=== PATIENT | female | born 1960 | race African-American/Black ===

== ENCOUNTER 2018-05-24 19:07 | Emergency (ER) | payer OTHER ==
[~2018-05-24] VITALS: Ht 167.6 cm; Wt 65.8 kg
[~2018-05-24 19:07] MED LIST: ASPIRIN325 MG ORAL; BENAZEPRIL HCL10 MG ORAL; HYDROCHLOROTH12.5 M2 ORAL; METFORMIN HCL500 M1 ORAL
[2018-05-24 19:10] VITALS: BP 126/90
[2018-05-24 21:04] VITALS: BP 122/86
[2018-05-24 21:48] LABS: BASOPHILS % (AUTO) 1.4 % (0.0-2.0); EOSINOPHILS % (AUTO) 0.7 % (0.0-3.0); HEMATOCRIT 34.1 % (37.0-47.0); HEMOGLOBIN 12.1 G/DL (12.0-16.0); LYMPHOCYTES % (AUTO) 25.3 % (20.0-45.0); MEAN CORPUSCULAR VOLUME 87 FL (80-99); MONOCYTES % (AUTO) 7.7 % (1.0-10.0); PLATELET COUNT 300 K/UL (150-450); RED BLOOD COUNT 3.91 M/UL (4.20-5.40); RED CELL DISTRIBUTION WIDTH 10.4 % (11.6-14.8); WHITE BLOOD COUNT 10.3 K/UL (4.8-10.8)
[2018-05-24 21:49] LABS: APPEARANCE,URINE CLEAR; BILIRUBIN, URINE NEGATIVE (NEGATIVE); COLOR,URINE PALE YELLOW; GLUCOSE, URINE (UA) 4+ (NEGATIVE); KETONES,URINE NEGATIVE (NEGATIVE); LEUKOCYTE ESTERASE ,URINE 1+ (NEGATIVE); NITRITE,URINE NEGATIVE (NEGATIVE); PH,URINE 5 (4.5-8.0); PROTEIN,URINE 2+ (NEGATIVE); UROBILINOGEN,URINE NORMAL MG/DL (0.0-1.0)
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
[2018-05-24 22:05] LABS: ANION GAP 8 mmol/L (5-15); BLOOD UREA NITROGEN 9 mg/dL (7-18); CALCIUM 9.8 MG/DL (8.5-10.1); CARBON DIOXIDE 28 MMOL/L (21-32); CHLORIDE 100 MMOL/L (98-107); CREATININE 0.7 MG/DL (0.55-1.30); POTASSIUM 3.7 MMOL/L (3.5-5.1); SODIUM 136 MMOL/L (136-145)
[2018-05-24 22:09] LABS: ALANINE AMINOTRANSFERASE 39 U/L (12-78); ALBUMIN 3.2 G/DL (3.4-5.0); ALBUMIN/GLOBULIN RATIO 0.6 (1.0-2.7); ALKALINE PHOSPHATASE 116 U/L (46-116); ASPARTATE AMINO TRANSFERASE 30 U/L (15-37); BILIRUBIN,TOTAL 0.8 MG/DL (0.2-1.0)
[2018-05-24 23:30] VITALS: BP 122/86
[2018-05-25 03:08] VITALS: BP 124/78
[2018-05-25 06:05] VITALS: BP 126/78
[2018-05-25 10:00] VITALS: BP 179/74
[2018-05-25] MEDS ORDERED: Acetaminophen 500mg (ES) tab ORAL ONE (10:48)
[2018-05-25 14:00] VITALS: BP 176/73
[2018-05-25 15:00] VITALS: BP 176/73
--- NOTE | 2018-05-26 13:34 | Consultation ---
History of Present Illness General Date patient seen: May 25, 2018 Chief Complaint: Pain Present Illness HPI 58-year-old female presents to the emergency department complaining of several complaints.the pt was given pain meds and upon discharge the pt stated that she was suicidal and does not want to leave and would like to be transferred to psych. During the eval the pt had future oriented thought process and was was asking more food. she was not anxious and her affect was full range. she stated that she was not taking her meds as they are ineffective. Allergies: Coded Allergies: No Known Allergies (Unverified , 05/24/18) Medication History Scheduled Aspirin* (Aspirin*), MG ORAL DAILY, (Reported) Benazepril Hcl* (Benazepril Hcl*), MG ORAL DAILY, (Reported) Hydrochlorothiazide* (Hydrochlorothiazide*), MG ORAL DAILY, (Reported) Metformin Hcl* (Metformin Hcl*), MG ORAL TWICE A DAY, (Reported) Patient History Limited by: medical condition History Provided By: Patient, Medical Record, PMD Healthcare decision maker Resuscitation status Advanced Directive on File Review of Systems Psychiatric: Reports: prior hx, depressed feelings Physical Exam General Appearance: no apparent distress, alert Neurologic: oriented x 3, responsive, normal mood/affect Last 24 Hour Vital Signs Date Time Temp Pulse Resp B/P (MAP) Pulse Ox O2 Delivery O2 Flow Rate FiO2 05/25/18 15:00 98.3 74 18 176/73 97 Room Air 98.3 05/25/18 14:00 98.3 74 18 176/73 97 Room Air 98.3 Height (Feet): 5 Height (Inches): 6.00 Weight (Pounds): 145 Assessment/Plan Assessment/Plan pain meds dependence mdd by hx the pt is not at imminent dts/dto the pt will be discharged with f/u plan Jake Mackey MD May 26, 2018 13:34
== END 2018-05-25 15:00 | disposition home or self-care (01) ==
LOC: EDBD 19:07 → EMR 19:47 → EDBD 19:47 → EMR 05-25 15:00
DX: F32.9 Major depressive disorder, single episode, unspecified (principal); R45.851 Suicidal ideations; E11.40 Type 2 diabetes mellitus with diabetic neuropathy, unspecified; Z79.4 Long term (current) use of insulin; M79.662 Pain in left lower leg; I10 Essential (primary) hypertension; M79.1 Myalgia; F17.210 Nicotine dependence, cigarettes, uncomplicated; F12.90 Cannabis use, unspecified, uncomplicated; Z87.898 Personal history of other specified conditions
CPT/HCPCS: 36415; 80053; 80307; 80329; 81003; 85025; 99284